=== PATIENT | male | born 1955 | race Caucasian/White ===

== ENCOUNTER → 2019-12-14 | Outpatient (CLI) | payer OTHER ==
[2019-12-14 09:00] LABS: POTASSIUM 4.2 mmol/L (3.5-5.1)
[2019-12-14 09:01] LABS: CALCIUM 9.1 mg/dL (8.3-10.5)
[2019-12-14 09:04] LABS: TOTAL BILIRUBIN 0.6 mg/dL (0.2-1.2)
[2019-12-14 11:49] LABS: ALBUMIN 4.2 g/dL (3.4-4.8)
== END ==
LOC: LAB 08:18
PROVIDERS: Family Medicine
DX: Z00.00 Encounter for general adult medical examination without abnormal findings (principal); Z12.6 Encounter for screening for malignant neoplasm of bladder; Z13.6 Encounter for screening for cardiovascular disorders; Z23 Encounter for immunization; S50.311A Abrasion of right elbow, initial encounter; R68.82 Decreased libido

== ENCOUNTER → 2021-01-20 | Outpatient (CLI) | payer OTHER | LOC: LAB 11:49 | DX: Z01.818 Encounter for other preprocedural examination (principal); Z20.822 Contact with and (suspected) exposure to COVID-19 ==

== ENCOUNTER → 2021-06-20 | Outpatient (CLI) | payer MEDICARE, OTHER ==
[2021-06-20 11:33] LABS: ALBUMIN 4.6 g/dL (3.4-4.8); POTASSIUM 4.4 mmol/L (3.5-5.1)
[2021-06-20 11:34] LABS: CALCIUM 10.1 mg/dL (8.3-10.5)
[2021-06-20 11:37] LABS: TOTAL BILIRUBIN 1.1 mg/dL (0.2-1.2)
== END ==
LOC: LAB 10:27
PROVIDERS: Family Medicine
DX: Z13.220 Encounter for screening for lipoid disorders (principal); Z12.5 Encounter for screening for malignant neoplasm of prostate; Z00.00 Encounter for general adult medical examination without abnormal findings; Z13.1 Encounter for screening for diabetes mellitus; Z13.31 Encounter for screening for depression

== ENCOUNTER → 2022-07-09 | Outpatient (CLI) | payer MEDICARE, OTHER ==
[2022-07-09 09:59] LABS: ALBUMIN 4.8 g/dL (3.4-4.8); POTASSIUM 4.4 mmol/L (3.5-5.1)
[2022-07-09 10:00] LABS: CALCIUM 10.2 mg/dL (8.3-10.5)
[2022-07-09 10:02] LABS: TOTAL PROTEIN 7.3 g/dL (6.2-8.1)
[2022-07-09 10:03] LABS: TOTAL BILIRUBIN 0.8 mg/dL (0.2-1.2)
== END ==
LOC: LAB 09:36
PROVIDERS: Family Medicine
DX: Z12.5 Encounter for screening for malignant neoplasm of prostate (principal); Z13.220 Encounter for screening for lipoid disorders; Z13.1 Encounter for screening for diabetes mellitus; Z00.00 Encounter for general adult medical examination without abnormal findings; Z13.31 Encounter for screening for depression; M54.50 Low back pain, unspecified; R25.1 Tremor, unspecified; Z12.11 Encounter for screening for malignant neoplasm of colon

== ENCOUNTER → 2023-02-20 | Outpatient (CLI) | payer MEDICARE, OTHER | LOC: RAD 12:05 | DX: M47.812 Spondylosis without myelopathy or radiculopathy, cervical region (principal); M47.814 Spondylosis without myelopathy or radiculopathy, thoracic region; M41.82 Other forms of scoliosis, cervical region; M41.84 Other forms of scoliosis, thoracic region; M25.551 Pain in right hip ==

== ENCOUNTER 2023-11-09 09:23 | Emergency (ER) | payer MEDICARE, OTHER | END 2023-11-09 10:09 | disposition home or self-care (01) | LOC: ED 09:23 | DX: H60.90 Unspecified otitis externa, unspecified ear (principal) ==

== ENCOUNTER → 2024-06-23 | Outpatient (CLI) | payer MEDICARE, OTHER ==
[~2024-06-23] MED LIST: EZETIMIBE10 M1 PO; Gadoterate 20 ML VIAL IV ONE; OXYBUTYNIN CHL2.5 MG PO; PRILOSEC 20MG20 MG; PROPRANOLOL HCL20 M2 PO
== END ==
LOC: RAD 07:31
DX: S46.012A Strain of muscle(s) and tendon(s) of the rotator cuff of left shoulder, initial encounter (principal); S46.812A Strain of other muscles, fascia and tendons at shoulder and upper arm level, left arm, initial encounter; S46.212A Strain of muscle, fascia and tendon of other parts of biceps, left arm, initial encounter; M19.012 Primary osteoarthritis, left shoulder; X58.XXXA Exposure to other specified factors, initial encounter
CPT/HCPCS: A9575

== ENCOUNTER → 2024-07-27 | Outpatient (CLI) | payer MEDICARE, OTHER ==
[~2024-07-27] MED LIST changes: -Gadoterate 20 ML VIAL IV ONE
[2024-07-27 10:37] LABS: ALBUMIN 4.3 g/dL (3.4-4.8)
[2024-07-27 10:38] LABS: CALCIUM 9.7 mg/dL (8.3-10.5)
[2024-07-27 10:40] LABS: TOTAL PROTEIN 6.8 g/dL (6.2-8.1)
[2024-07-27 10:41] LABS: TOTAL BILIRUBIN 0.8 mg/dL (0.2-1.2)
== END ==
LOC: LAB 10:21
PROVIDERS: Family Medicine
DX: Z12.5 Encounter for screening for malignant neoplasm of prostate (principal); E78.2 Mixed hyperlipidemia; Z79.899 Other long term (current) drug therapy